=== PATIENT | female | born 1955 | race Caucasian/White ===

== ENCOUNTER 2017-03-27 10:10 | Emergency (ER) | payer OTHER ==
[2017-03-27 10:18] VITALS: BP 143/83; TEMP 98.3; BMI 32.8
--- NOTE | 2017-03-27 11:23 | PDOC ---
History of Present Illness - General Chief Complaint: Pain Stated Complaint: FALL, PAIN Time Seen by Provider: 03/27/17 11:22 History Source: Patient Exam Limitations: No Limitations - History of Present Illness Initial Comments: CHIEF COMPLAINT: 61 y/o afebrile female with PMH NIDDM, HTN, b/l THR c/o right back, butt, hip and knee pain since slip and fall yesterday. HISTORY OF PRESENT ILLNESS: The patient states she was tangled between 2 dog leashes yesterday when she felt her right knee give out and she fell to the ground and landed on her butt. She states since that time she's had pain to her butt, right low back, right hip and right knee. The knee hurts the most when she goes down stairs or tries to sit on the toilet. She hast taken 1 tramadol for pain. She is ambulatory. She denies head trauma, LOC, saddle anesthesia, bowel/bladder incontinence, numbness/tingling in LEs. Vital signs on arrival are notable for pulse of 111. REVIEW OF SYSTEMS: GENERAL/CONSTITUTIONAL: No fever/chills. No weakness. No weight change. HEAD, EYES, EARS, NOSE AND THROAT: No change in vision. No ear pain or discharge. No sore throat. CARDIOVASCULAR: No chest pain or shortness of breath. RESPIRATORY: No cough, wheezing, or hemoptysis. GASTROINTESTINAL: No abd pain, nausea, vomiting, diarrhea. GENITOURINARY: No dysuria, frequency, or change in urination. MUSCULOSKELETAL: +right low back, right butt, right hip and right knee pain. No neck pain. SKIN: No rash or easy bruising. NEUROLOGIC: No headache, vertigo, loss of consciousness, or loss of sensation. PHYSICAL EXAM: GENERAL: The patient is awake, alert, and fully oriented, in no acute distress. She is ambulatory. HEAD: Normal with no signs of trauma. ENT: Pupils equal, round and reactive to light, extraocular movements intact, sclera anicteric, conjunctiva clear. Neck supple. ABDOMEN: Soft, non-distended, non-tender even to deep palpation, no hepatomegaly or splenomegaly, no masses. EXTREMITIES: Normal range of motion, no edema. 2+ LE reflexes. Pain with palpation of right medial knee joint with negative lachmann's test. Minimal edema to medial right knee joint. TTP of right greater trochanter. Full ROM of both right knee and right hip. BACK: TTP of midline lumbar spine in sacral region. Reproducible pain with palpation of right lumbar paravertebral muscles. Pain with flexion of lumbar spine. NEUROLOGICAL: Normal speech, normal gait. CN II-XII grossly intact. No saddle anesthesia. PSYCH: Normal mood, normal affect. SKIN: Warm, dry, normal turgor, no rashes or lesions noted. Past History - Past Medical History Allergies/Adverse Reactions: Allergies Allergy/AdvReac Type Severity Reaction Status Date / Time cat scan dye Allergy Hives Uncoded 03/27/17 10:14 Home Medications: Ambulatory Orders Atorvastatin Ca [Lipitor -] 20 mg PO HS 05/29/14 Metformin HCl [Metformin HCl ER] 1,000 mg PO BID 05/29/14 Ramipril [Altace] 1.25 mg PO DAILY 05/29/14 Sitagliptin Phosphate [Januvia] 100 mg PO DAILY 05/29/14 Diabetes: Yes GI Disorders: Yes (diverticulitis) Suicide Attempt (Hx): No - Surgical History Abdominal Surgery: Yes (hernia) GI Surgery: Yes (partial colectomy for diverticulitis) - Psycho/Social/Smoking Cessation Hx Anxiety: No Suicidal Ideation: No Smoking History: Never smoked Have you smoked in the past 12 months: No Information on smoking cessation initiated: No Hx Alcohol Use: No Drug/Substance Use Hx: No Substance Use Type: None *Physical Exam - Vital Signs Last Vital Signs Temp Pulse Resp BP Pulse Ox 98.3 F 111 H 18 143/83 100 03/27/17 10:14 03/27/17 10:14 03/27/17 10:14 03/27/17 10:14 03/27/17 10:14 Medical Decision Making - Medical Decision Making A/P: 61 y/o female with right butt, hip, low back and knee pain s/p slip and fall yesterday. Plan is as follows: 1. IM Toradol 2. Xray right knee, hip, lumbar/sacral spine Xray right knee IMPRESSION: No acute bony abnormalities xray right hip IMPRESSION: No acute bony abnormalities Xray lumbar/sacral spine IMPRESSION: No acute bony abnormalities The patient was given her results. She states she does feel better after toradol. Her heartrate has improved. Suggested RICE instructions and f/u with Dr. Wyatt within 1 week for knee. Suggested she take Motrin every 6 hours for pain and swelling with food. Pt instructed to return to the ER with any worsening or concerning symptoms. The patient verbalizes understanding of all instructions, has no further questions and is awaiting discharge. *DC/Admit/Observation/Transfer Diagnosis at time of Disposition: Musculoskeletal pain Fall Qualifiers: Encounter type: initial encounter Qualified Code(s): W19.XXXA - Unspecified fall, initial encounter - Discharge Dispostion Disposition: HOME Condition at time of disposition: Improved - Referrals Referrals: STAFF,NOT ON [Primary Care Provider] - Josr Wyatt MD [Staff Physician] - Call tomorrow - Patient Instructions Printed Discharge Instructions: DI for Musculoskeletal Pain, How To Perform RICE (Rest, Ice, Compress, Elevate) Additional Instructions: Discharge Instructions: -Take 600mg of Motrin every 6 hours for pain with food -Apply heating pad to low back -Apply ice to your hip and knee -Follow up with Dr. Wyatt within 1 week. -Return to the ER with any worsening or concerning symptoms
[2017-03-27] MEDS ORDERED: KETOROLAC TROMETHAMINE 60 MG/2 ML VIAL IM ONE (11:49)
[2017-03-27] MEDS ORDERED: KETOROLAC TROMETHAMINE 60 MG/2 ML VIAL ONE (12:03)
[2017-03-27 14:57] VITALS: PULSE 83
== END 2017-03-27 15:12 | disposition home or self-care (01) ==
LOC: JERFT 10:10
PROC: 3E0233Z Introduction of Anti-inflammatory into Muscle, Percutaneous Approach (ICD-10-PCS; principal; 2017-03-27)
DX: M54.5 Low back pain (principal); M25.551 Pain in right hip; M25.561 Pain in right knee; W01.0XXA Fall on same level from slipping, tripping and stumbling without subsequent striking against object, initial encounter; Y93.K1 Activity, walking an animal; Y92.89 Other specified places as the place of occurrence of the external cause; Y99.8 Other external cause status; I10 Essential (primary) hypertension; E11.9 Type 2 diabetes mellitus without complications; Z79.84 Long term (current) use of oral hypoglycemic drugs; E78.00 Pure hypercholesterolemia, unspecified; Z96.643 Presence of artificial hip joint, bilateral
CPT/HCPCS: 72100-TC; 73502-TC-RT; 73560-TC-RT; 96372; 99281-25

== ENCOUNTER 2021-09-04 15:35 | Observation (INO) | payer OTHER ==
[2021-09-04 16:14] VITALS: BMI 34.7
[2021-09-04] MEDS ORDERED: SODIUM CHLORIDE 0.9% 1000 ML INFUS.BAG IV ONE (17:23)
[2021-09-04 18:12] LABS: BASO % 0.7 % (0-2.0); EOS % 0.9 % (0-4.5); HEMATOCRIT 41.5 % (32.4-45.2); HEMOGLOBIN 13.8 GM/dL (10.7-15.3); LYMPH % 22.3 % (8-40); MCH 28.4 pg (25.7-33.7); MCHC 33.2 g/dl (32.0-36.0); MEAN CELL VOLUME 85.6 fl (80-96); MEAN PLT VOLUME 8.4 fl (7.5-11.1); MONO % 4.3 % (3.8-10.2); NEUT % 71.8 % (42.8-82.8); PLATELET COUNT 226 10^3/uL (134-434); RBC 4.85 M/mm3 (3.60-5.2); RDW 14.5 % (11.6-15.6); WHITE BLOOD COUNT 8.8 K/mm3 (4.0-10.0)
[2021-09-04 18:39] LABS: CHLORIDE 105 mmol/L (98-107); SODIUM 139 mmol/L (136-145)
[2021-09-04 18:41] LABS: ALBUMIN 3.6 g/dl (3.4-5.0); ANION GAP 8 MMOL/L (8-16); BLOOD UREA NITROGEN 19.8 mg/dL (7-18); CALCIUM 8.8 mg/dL (8.5-10.1); CO2 25 mmol/L (21-32); GLUCOSE,RANDOM 112 mg/dL (74-106)
[2021-09-04 18:43] LABS: CREATININE 0.9 mg/dL (0.55-1.3); SGOT/AST 21 U/L (15-37); SGPT/ALT 30 U/L (13-61)
[2021-09-04 18:45] LABS: BILIRUBIN,TOTAL 0.3 mg/dL (0.2-1); TOT PROT 7.4 g/dl (6.4-8.2)
[2021-09-04 18:47] LABS: ALK PHOS 79 U/L (45-117)
[2021-09-04 19:05] LABS: URINE APPEARANCE CLEAR; URINE BILIRUBIN NEGATIVE (NEGATIVE); URINE COLOR YELLOW; URINE GLUCOSE (UA) NEGATIVE (NEGATIVE); URINE KETONE NEGATIVE (NEGATIVE); URINE LEUK ESTERASE NEGATIVE (NEGATIVE); URINE NITRITE NEGATIVE (NEGATIVE); URINE PROTEIN NEGATIVE (NEGATIVE); URINE UROBILINOGEN 0.2 mg/dL (0.2-1.0)
[2021-09-05] MEDS ORDERED: traMADol HCL 50 MG TABLET PO PRN (00:30)
[2021-09-05 06:17] VITALS: TEMP 98.2
[2021-09-05 06:31] LABS: BASO % 0.4 % (0-2.0); EOS % 1.6 % (0-4.5); HEMATOCRIT 39.3 % (32.4-45.2); HEMOGLOBIN 13.4 GM/dL (10.7-15.3); LYMPH % 32.2 % (8-40); MCH 29.1 pg (25.7-33.7); MCHC 34.1 g/dl (32.0-36.0); MEAN CELL VOLUME 85.4 fl (80-96); MEAN PLT VOLUME 8.4 fl (7.5-11.1); MONO % 5.9 % (3.8-10.2); NEUT % 59.9 % (42.8-82.8); PLATELET COUNT 210 10^3/uL (134-434); RDW 14.1 % (11.6-15.6); WHITE BLOOD COUNT 7.2 K/mm3 (4.0-10.0)
[2021-09-05 06:49] LABS: CALCIUM 8.3 mg/dL (8.5-10.1)
[2021-09-05 06:51] LABS: MAGNESIUM 1.6 mg/dL (1.8-2.4)
[2021-09-05 06:54] LABS: CREATININE 0.9 mg/dL (0.55-1.3)
[2021-09-05 06:55] LABS: PHOSPHOROUS 3.5 mg/dL (2.5-4.9)
[2021-09-05] MEDS ORDERED: INSULIN SLIDING SCALE (NOVOLOG) 1 VIAL SQ SCH ×2 (07:00)
[2021-09-05 08:03] VITALS: BP 157/80; PULSE 73
[2021-09-05] MEDS ORDERED: ENOXAPARIN NA (PORCINE) 40 MG/0.4 ML DISP.SYRIN SQ SCH (10:00)
[2021-09-05] MEDS ORDERED: RAMIPRIL 1.25 MG CAPSULE PO SCH (10:00)
[2021-09-05] MEDS ORDERED: ATORVASTATIN CA 20 MG TABLET (FP) PO SCH (22:00)
== END 2021-09-05 08:12 | disposition left against medical advice (07) ==
LOC: JER 15:35 → JERBED 18:57
PROVIDERS: ADMIT Internal Medicine; ATTEND Internal Medicine
PROC: 3E0337Z Introduction of Electrolytic and Water Balance Substance into Peripheral Vein, Percutaneous Approach (ICD-10-PCS; principal; 2021-09-04)
DX: R51.9 Headache, unspecified (principal); I10 Essential (primary) hypertension; E78.5 Hyperlipidemia, unspecified; Z91.041 Radiographic dye allergy status; E66.9 Obesity, unspecified; Z68.34 Body mass index [BMI] 34.0-34.9, adult; M19.90 Unspecified osteoarthritis, unspecified site; Z96.643 Presence of artificial hip joint, bilateral
CPT/HCPCS: 36415; 70450-TC; 71045-TC-FY; 80048; 80053; 80061; 81003; 82550; 82962; 83036; 83735; 84100; 84443; 84484; 85025; 87086; 93005; 93010; 96360; 99285-25; C9803; G0378; U0003; U0005